=== PATIENT | male | born 1980 | race Caucasian/White ===

== ENCOUNTER 2017-06-06 10:32 | Emergency (ER) | payer OTHER ==
[~2017-06-06 10:32] MED LIST: BACITRACIN30 GM TOP; BACTRIM DS TABL1 TA1 PO; DIAZEPAM PO; HYDROCODON-ACE1 EAC9 PO; KEFLEX PO; NO MEDICATIONS
[2017-06-06] MEDS ORDERED: NO MEDICATIONS (10:40)
== END 2017-06-06 11:22 | disposition home or self-care (01) ==
LOC: SED 10:32
DX: L03.211 Cellulitis of face (principal); F17.200 Nicotine dependence, unspecified, uncomplicated; Z86.19 Personal history of other infectious and parasitic diseases
CPT/HCPCS: 99283; J1885